=== PATIENT | female | born 1995 | race Caucasian/White ===

== ENCOUNTER 2021-06-01 07:34 | Emergency (ER) | payer SELFPAY ==
[~2021-06-01] VITALS: Ht 157.5 cm; Wt 74.8 kg
[2021-06-01] MEDS ORDERED: ACETAMINOPHEN 325 MG TAB PO ONE (08:15)
[2021-06-01 08:24] LABS: CLARITY,URINE CLEAR (CLEAR); COLOR,URINE YELLOW (YELLOW); KETONES,URINE NEGATIVE (NEGATIVE); LEUKOCYTE ESTERASE ,URINE NEGATIVE (NEGATIVE); NITRITE,URINE NEGATIVE (NEGATIVE); PROTEIN,URINE DIPSTICK NEGATIVE (NEGATIVE); URINE UROBILINOGEN 0.2 mg/dL (0.2 - 1)
[2021-06-01] MEDS ORDERED: ACETAMINOPHEN 325 MG TAB ONE (08:35)
[2021-06-01 08:46] LABS: BACTERIA,URINE MODERATE /HPF; EPITHELIAL CELLS,URINE FEW /LPF; TRANSITIONAL EPI CELLS,URINE RARE; WBC,URINE (MAN) 21-50 /HPF (0-5)
[2021-06-01 09:36] VITALS: BP 116/55
== END 2021-06-01 09:40 | disposition home or self-care (01) ==
LOC: ER 08:13
DX: O20.9 Hemorrhage in early pregnancy, unspecified (principal)
CPT/HCPCS: 81001; 99283